=== PATIENT | female | born 1955 | race Caucasian/White ===

== ENCOUNTER 2016-04-06 12:26 | Outpatient (CLI) | payer BC | END 2016-04-06 12:27 | disposition home or self-care (01) | DX: N60.02 Solitary cyst of left breast (principal) ==

== ENCOUNTER 2016-06-17 13:16 | Outpatient (CLI) | payer BC | END 2016-06-17 13:17 | disposition home or self-care (01) | DX: G47.33 Obstructive sleep apnea (adult) (pediatric) (principal) ==

== ENCOUNTER 2017-10-07 18:03 | Emergency (ER) | payer BC ==
--- NOTE | 2017-10-07 18:32 | ED Physician Documentation ---
PD HPI LOWER EXT INJURY - Stated complaint Stated Complaint: GLF/ L HIP PX - Chief complaint Chief Complaint: Ext Problem - History obtained from History obtained from: Patient, Family - History of Present Illness PD HPI LOW EXT INJURY LOCATION: Left (She was stepping up onto a curb and felt a pop in the back of her leg and it was quite painful and she could not walk or bear weight after that. She did not really fall per se, she was assisted to the ground. No other injury) Timing - onset: How many weeks ago Review of Systems Ten Systems: 10 systems reviewed and negative Constitutional: reports: Reviewed and negative Cardiac: reports: Reviewed and negative Respiratory: reports: Reviewed and negative PD PAST MEDICAL HISTORY - Past Medical History Past Medical History: No - Allergies Allergies/Adverse Reactions: Allergies Allergy/AdvReac Type Severity Reaction Status Date / Time ibuprofen AdvReac Emesis Verified 10/07/17 18:12 - Living Situation Living Situation: reports: With spouse/s.o. - Social History Does the pt smoke?: No Does the pt have substance abuse?: No - Family History Family history: reports: Non contributory PD ED PE NORMAL - Vitals Vital signs reviewed: Yes - General General: Alert and oriented X 3, No acute distress - HEENT HEENT: PERRL, EOMI - Neck Neck: Supple, no meningeal sign, No bony TTP - Cardiac Cardiac: RRR, No murmur - Respiratory Respiratory: No respiratory distress, Clear bilaterally - Abdomen Abdomen: Normal bowel sounds, Soft, Non tender - Back Back: No CVA TTP, No spinal TTP - Derm Derm: Normal color, Warm and dry - Extremities Extremities: Other (Hips and pelvis are nontender as is the knee. She does not have any tenderness with internal or external rotation of the left hip. When I placed her in a prone position she is very tender over the mid hamstring on the left and is unable to lift the foot off the bed but can do so passively and hold it there.) - Neuro Neuro: Alert and oriented X 3, Normal speech - Psych Psych: Normal mood, Normal affect Results - Vitals Vitals: Vital Signs - 24 hr 10/07/17 10/07/17 18:06 20:44 Temperature 36.7 C Heart Rate 63 61 Respiratory 18 15 Rate Blood Pressure 152/77 H 176/94 H O2 Saturation 100 97 Oxygen O2 Source Room air - Rads (name of study) L hip and femur XRs Radiology: EMP read contemporaneously (Hip x-rays normal, on the femur x-ray there is a small ossific density medial to the left femoral neck which could represent a nondisplaced fracture and CT imaging was advised.) CT left hip Radiology: EMP read contemporaneously (Still some subtle changes that could be consistent with a nondisplaced subcapital neck fracture.) PD MEDICAL DECISION MAKING - ED course ED course: History and exam are really only consistent with a hamstring sprain or partial tear. X-rays were pretty much negative but demonstrated potential ossification medial to the femoral neck which could be consistent with a femoral neck fracture so this was followed with CT which was inconclusive as well. I spoke with Dr. Covarrubias for observation for MRI, and he reminded me that because of some staffing issues MRI is not available here until Wednesday After discussion with the patient and the decision was made to transfer her to [facility] for urgent MRI and he was accepted there by Dr. Hendrix in the emergency department and cobras were completed. - Sepsis Event Vital Signs: Vital Signs - 24 hr 10/07/17 10/07/17 18:06 20:44 Temperature 36.7 C Heart Rate 63 61 Respiratory 18 15 Rate Blood Pressure 152/77 H 176/94 H O2 Saturation 100 97 Oxygen O2 Source Room air Departure - Departure Disposition: 02 Transfer Acute Care Hosp Clinical Impression: Tear of left hamstring Qualifiers: Encounter type: initial encounter Qualified Code(s): S76.312A - Strain of muscle, fascia and tendon of the posterior muscle group at thigh level, left thigh, initial encounter Condition: Good Record reviewed to determine appropriate education?: Yes Instructions: ED Strain Muscle Ext Comments: Call your doctor to arrange a follow-up appointment, make the next available appointment. In the interim, return anytime if worse or if new symptoms develop. Your blood pressure was elevated today on check into the emergency department. This does not mean that you have hypertension, it is a common phenomenon to come to the emergency department and have elevated blood pressure. I recommend that you see your primary care physician within the week to have it rechecked when you are feeling better.
[2017-10-07] MEDS ORDERED: CYCLOBENZAPRINE 10 MG TABLET PO STA (19:11)
--- NOTE | 2017-10-07 19:18 | XRAY Report ---
Procedure Date: 10/07/2017 Accession Number: [id number] / [id number] Procedure: XR - Hip w/Pelvis 2-3V LT CPT Code: FULL RESULT: EXAM: LEFT HIP AND PELVIS RADIOGRAPHY EXAM DATE: 10/07/2017 07:03 PM. HISTORY: Left hip pain, unable to bear weight. COMPARISONS: None. TECHNIQUE: 1 view of the pelvis and 1 view of the hip. FINDINGS: Bones: Ossific density medial to the inferior aspect of the left femoral neck could represent soft tissue ossification versus the sequela of a left femoral neck fracture. Joints: The bilateral hip, pubis symphysis, and sacroiliac joints are preserved. Soft Tissues: Normal. No soft tissue swelling. Comment: Significant stool and gas overlies the sacrum limiting the evaluation for fractures. IMPRESSION: 1. Ossific density medial to the inferior aspect of the left femoral neck. Differential includes soft tissue ossification versus sequela of an occult left femoral neck fracture. Recommend CT for confirmation. 2. Normal alignment. RADIA
--- NOTE | 2017-10-07 19:21 | XRAY Report ---
Procedure Date: 10/07/2017 Accession Number: [id number] / [id number] Procedure: XR - Femur 2V LT CPT Code: FULL RESULT: EXAM: LEFT FEMUR RADIOGRAPHY EXAM DATE: 10/07/2017 07:03 PM. CLINICAL HISTORY: Leg injury. COMPARISON: None. TECHNIQUE: 2 views. FINDINGS: Bones: Small ossific density medial to the lower left femoral neck could represent soft tissue calcifications or subtle fracture. The remaining left femur is normal. Joints: The visualized hip and knee joints are normal. No effusions. Soft Tissues: Normal. No soft tissue swelling. IMPRESSION: 1. Small ossific density medial to the left femoral neck. Potentially, this could represent a subtle left femoral neck fracture. Recommend CT evaluation. 2. Normal alignment. RADIA
--- NOTE | 2017-10-07 21:26 | CT Report ---
Procedure Date: 10/07/2017 Accession Number: [id number] / [id number] Procedure: CT - Lower Extremity Left W/O CPT Code: FULL RESULT: EXAM: LEFT HIP CT WITHOUT CONTRAST EXAM DATE: 10/07/2017 08:43 PM. CLINICAL HISTORY: Leg injury, possible fracture on x-ray. COMPARISON: HIP W/PELVIS 2-3V LT 10/07/2017. TECHNIQUE: Thin-section axial images were acquired of the hip without contrast. Post-processing: Coronal and sagittal reformats. Other: None. In accordance with CT protocol optimization, one or more of the following dose reduction techniques were utilized for this exam: automated exposure control, adjustment of mA and/or KV based on patient size, or use of iterative reconstructive technique. FINDINGS: Bones: There is a corticated bony opacity adjacent to the ischial tuberosity, suggestive of an old avulsion fracture involving the hamstrings attachment. There is subtle alteration in the contour of the cortex of the subcapital neck of femur. The findings may indicate a nondisplaced femoral neck fracture. The superior and inferior pubic ramus, left acetabulum appear intact. Joints: See above. Musculature: Normal. No fatty atrophy. Other: The visualized intraperitoneal structures are unremarkable. IMPRESSION: 1. Very subtle changes in the subcapital neck of femur which may indicate a nondisplaced fracture. MRI or nuclear medicine bone scan is recommended for clarification. 2. Old avulsion fracture of the left hamstrings attachment. RADIA
[2017-10-07 22:31] VITALS: BP 157/74
[2017-10-07] MEDS ORDERED: MORPHINE 10 MG/ML VIAL IVP STA (22:59)
== END 2017-10-07 23:05 | disposition short-term general hospital (02) ==
LOC: ED 18:03
DX: S76.312A Strain of muscle, fascia and tendon of the posterior muscle group at thigh level, left thigh, initial encounter (principal); W22.09XA Striking against other stationary object, initial encounter; Y93.89 Activity, other specified; R03.0 Elevated blood-pressure reading, without diagnosis of hypertension
CPT/HCPCS: 73502; 73552; 73700; 99283; 99284; A9270

== ENCOUNTER 2018-03-14 13:09 | Outpatient (CLI) | payer BC | END 2018-03-14 13:10 | disposition home or self-care (01) | LOC: SC 13:09 | PROVIDERS: ATTEND Nurse Practitioner Family | DX: G47.33 Obstructive sleep apnea (adult) (pediatric) (principal) | CPT/HCPCS: 99212; 99214 ==

== ENCOUNTER 2018-06-08 14:15 | Outpatient (CLI) | payer BC ==
--- NOTE | 2018-06-09 08:54 | Mammography Report ---
Reason: SCREENING MAMMO Procedure Date: 06/08/2018 Accession Number: [id number] / [id number] Procedure: [facility] - Screening Mammo w/Jeffrey CPT Code: FULL RESULT: EXAM: Screening Mammo w/Jeffrey DATE: 06/08/2018 3:00 PM CLINICAL HISTORY: Screening encounter. History of late childbearing. TECHNIQUE: Bilateral CC, laterally exaggerated CC, MLO views were obtained. COMPARISON: 04/06/2016 through 05/04/2010. FINDINGS: The breasts demonstrate heterogeneously dense fibroglandular parenchyma bilaterally. A 0.8 cm well-circumscribed isodense nodule in the left upper central breast 3.5 cm from the nipple on 3-D MLO slice 41 and 3-D cc slice 38 is not definitely present on the previous studies and requires additional ultrasound to determine whether this represents a cyst. No suspicious masses, clustered microcalcifications, or regions of architectural distortion are identified in the right breast. IMPRESSION: Incomplete examination RECOMMENDATION: Additional evaluation of the left breast with ultrasound as above. BIRADS CATEGORY 0: Incomplete examination STANDARD QUALIFYING STATEMENTS: 1. This examination was not reviewed with the aid of Computer-Aided Detection (CAD). 2. A negative or benign imaging report should not delay biopsy if clinically suspicious findings are present. Consider surgical consultation if warrented. More than 5% of cancers are not identified by imaging. 3. Dense breasts may obscure an underlying neoplasm. 4. This examination was reviewed with the aid of 3D breast imaging (tomosynthesis).
== END 2018-06-08 14:16 | disposition home or self-care (01) ==
LOC: DI 14:15
DX: Z12.31 Encounter for screening mammogram for malignant neoplasm of breast (principal)
CPT/HCPCS: 77063; 77067

== ENCOUNTER 2018-06-20 09:02 | Outpatient (CLI) | payer BC | END 2018-06-20 09:03 | disposition home or self-care (01) | LOC: SC 09:02 | PROVIDERS: ATTEND Nurse Practitioner Family | DX: G47.33 Obstructive sleep apnea (adult) (pediatric) (principal) | CPT/HCPCS: 99212; 99214 ==

== ENCOUNTER 2018-06-20 10:47 | Outpatient (CLI) | payer BC ==
--- NOTE | 2018-06-20 15:57 | Ultrasound Report ---
Reason: ABNORMAL MAMMOGRAM Procedure Date: 06/20/2018 Accession Number: [id number] / [id number] Procedure: US - Breast Unilateral Limited CPT Code: FULL RESULT: EXAM: Breast Unilateral Limited DATE: 06/20/2018 11:35 AM CLINICAL HISTORY: Diagnostic breast ultrasound. The patient is recalled from screening for a well-circumscribed 0.8 cm nodule in the left central breast. COMPARISON: Screening mammography 06/08/2018. TECHNIQUE: Targeted ultrasound was performed of the left breast in the area of clinical concern at 12:00 o'clock and 3 cm distance from the nipple. Color Doppler was employed as appropriate. FINDINGS: Grayscale ultrasound demonstrates a 0.7 cm simple cyst with increased through transmission, no internal vascularity by color Doppler and no appreciable soft tissue solid component. This corresponds to the mammographic finding and is typically benign. No suspicious findings are identified. IMPRESSION: Benign findings RECOMMENDATION: Recommend routine annual Screening mammography unless otherwise clinically indicated. BIRADS CATEGORY 2: Benign findings RADIA
== END 2018-06-20 10:48 | disposition home or self-care (01) ==
LOC: DI 10:47
PROVIDERS: ATTEND Physician Assistant
DX: R92.8 Other abnormal and inconclusive findings on diagnostic imaging of breast (principal)
CPT/HCPCS: 76642

== ENCOUNTER 2019-09-06 11:08 | Outpatient (CLI) | payer BC ==
[2019-09-06 12:18] VITALS: BP 118/70
--- NOTE | 2019-09-06 12:18 | SLEEP CARE CONSULTATION ---
Information from patient questionnaire entered by Shalini Heller. I have reviewed and concur with the information entered by Shalini Heller. This document represents the service I personally performed and the decisions made by me, Lisset Russo, RN, MSN, ST[employer]. History of Present Illness Service Date and Time: 09/06/2019 1108 Previous diagnosis: Mild, Obstructive Sleep Apnea-Hypopnea Syndrome AHI: 10.0 (in 2013) Reason for follow up: annual (last seen 2019) Equipment type: CPAP Equipment obtained from: [employer] (in [place] / getting as needed but cheaper online.) Mask style: Nasal Mask brand: Respironics (Dreamwear working well) Backup mask available: Yes (old mask) Last cushion change: 6 weeks ago Prior sleep studies: Yes Year and Where: 2013 - [facility] Type of Sleep Study: Polysomnography CPAP Compliance Data - Data Reviewed with Patient Average duration of nightly device use: 7.95 Compliance rate %: 95 (180 days) Current pressure setting (cmH2O): 7-12 Humidity settin Average residual AHI: 3.1 (average 90% pressure 10.8cmH20 mean 8.7cmH20) Average large leak: 43 sec Subjective Patient concerns: reports: nasal congestion (seasonal - 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 denies: aerophagia, mask discomfort, air blowing in eyes, mask leak noise, condensation in mask/hose, epistaxis Observed to snore while using device: No Current pressure setting perceived as: too low (initially) On therapy, patient: reports: sleeping better, awakening more refreshed, being more awake and alert during the day, more rested overall. denies: drowsiness while driving Initial [place] Sleepiness Scale score: 5 (in 2013) Current [place] Sleepiness Scale score: 4 Allergies and Home Medications Known drug allergies: Yes (ibuprofen) Home medication list reviewed: No ( no changes stated) Review of Systems Review of systems same as previous: Yes Physical Exam Blood Pressure: 118/70 Cuff size: long Heart Rate: 60 O2 Saturation: 96 Height: 5 ft 7 in Weight: 188 lb Weight change since last visit: gained 4 pounds Body Mass Index: 29.4 BMI Classification: Overweight Impression and Plan 1. Obstructive Sleep Apnea-Hypopnea Syndrome, mild, with good treatment compliance and good apnea control. On CPAP therapy, the patient has better sleep quality and is more rested overall. For air hunger at initiation of therapy I will change her autoCPAP presssure to [id number]. She is to contact me if pressure change insufficient or uncomfortable. With discussion, she felt it was the ramp that was too low but it appears she does not use the ramp. Rationale for use of ramp discussed. Nasal congestion can be reduced with increasing the CPAP humidity . The heated hose can be adjusted higher if condensation with higher humidity setting or lower to get more moisture. Also she is currently using saline spray and Flonase to control symptoms with benefit noted in addition to use of a home HEPA filter. She also has started to shower at night which has been helpful. A higher humidity will also reduce oral dryness. A chinstrap could also be helpful since she feels it is from opening her mouth occasionally but she declined. She would rather try the oral vertical tape she has used a few times with success. She would like a travel CPAP, questions answered about devices and process. Cost range discussed and she can check on Respironics site for more information since she likes this product. This style also has downloading capacitiy for use since she hopes to restart traveling more frequently. I also showed her how the humidity can be removed from her CPAP to make smaller and can use her saline nasal spray for moisture. She is due for a new CPAP but would like to wait to order until deductible met. I informed her of malfunction symptoms to report to replace device. She looked at CPAP samples and would like the Respironics Dreamstation. She was informed to contact me when she wants to update. I can write a prescription if I have seen her within 6 months. I also discussed process for new device compliance check. Since she has gained some weight, I reviewed her BMI and advised her to lose weight. I discussed how significant weight gain could increase her apnea risk and CPAP pressure requirements. She is currently at her higher range of pressures. In addition, if she loses weight, her autoCPAP should accomodate for some weight loss. Symptoms to report for future pressure change discussed. Patient's apnea severity and rationale for treatment to reduce apnea, improve sleep quality and reduce cardiovascular and cerebrovascular events was reviewed. * Change auto CPAP pressure to 8-12 cmH2O * Notify me if snoring with mask or feeling that the pressure is too much or too little * Attempt to lose weight * Implement methods to reduce oral dryness and nasal congestion. * Call this office if any problems using CPAP * Contact this office if wants to update device * Travel CPAP RX given * Return for follow up in 1 year unless decides to update device , or sooner if concerns arise Visit Type: In Office Time Spent with Patient (minutes): 40 Provider Statement: I spent 100% of the Face to Face Visit with the patient with greater than 50% spent counseling the patient and coordination of care.
== END 2019-09-06 11:09 | disposition home or self-care (01) ==
LOC: SC 11:08
PROVIDERS: ATTEND Nurse Practitioner Family
DX: G47.33 Obstructive sleep apnea (adult) (pediatric) (principal); E66.3 Overweight; Z68.29 Body mass index [BMI] 29.0-29.9, adult
CPT/HCPCS: 99212; 99215

== ENCOUNTER 2020-10-31 15:32 | Outpatient (CLI) | payer BC ==
--- NOTE | 2020-10-31 16:08 | SLEEP CARE CONSULTATION ---
Information from patient questionnaire entered by Shalini Heller. I have reviewed and concur with the information entered by Shalini Heller. This document represents the service I personally performed and the decisions made by , Ivanna Dominguez ARNP. History of Present Illness Service Date and Time: 10/31/2020 1532 Previous diagnosis: Mild, Obstructive Sleep Apnea-Hypopnea Syndrome AHI: 10.0 (in 2013) Reason for follow up: annual (last seen 08/2019) Equipment type: CPAP Equipment obtained from: [employer] (in [place]) Mask style: Nasal Mask brand: Respironics (Dreamwear) Backup mask available: Yes (old mask) Last cushion change: 1 month Prior sleep studies: Yes Year and Where: 2013 - [facility] Type of Sleep Study: Polysomnography HPI additional information: JEB MCMULLEN was diagnosed to have mild, AHI 10.0, obstructive sleep apnea- hypopnea syndrome and returned today for CPAP therapy annual follow-up. CPAP Compliance Data - Data Reviewed with Patient Average duration of nightly device use: 7 hr 52 min Compliance rate %: 91.1 (180 days) Current pressure setting (cmH2O): 9-11 Average residual AHI: 2.4 Average large leak: 31 sec Subjective Missed days of use due to: reports: travel (using Travel CPAP) Patient concerns: reports: dry mouth, nose, throat. denies: aerophagia, mask discomfort, air blowing in eyes, mask leak noise, condensation in mask/hose, nasal congestion, epistaxis, other Observed to snore while using device: No Current pressure setting perceived as: comfortable On therapy, patient: reports: sleeping better, awakening more refreshed, being more awake and alert during the day, more rested overall. denies: drowsiness while driving Initial [place] Sleepiness Scale score: 5 (in 2013) Current [place] Sleepiness Scale score: 0 Allergies and Home Medications Home medication list reviewed: Yes (no changes) Review of Systems Review of systems same as previous: Yes (no changes) Physical Exam Blood Pressure: 147/87 Cuff size: wrist Heart Rate: 73 O2 Saturation: 98 Height: 5 ft 7 in Weight: 190 lb Body Mass Index: 29.7 BMI Classification: Overweight Impression and Plan 1. Obstructive Sleep Apnea-Hypopnea Syndrome, mild, with good treatment compliance and good apnea control. On CPAP therapy, the patient has better sleep quality and is more rested overall. Patient has some mild mouth dryness. Her humidity is set on 4. Oral dryness can be reduced by adjusting humidity setting higher or heated hose lower or by adjusting both settings. Printed instructions given on how to change humidity and heated hose settings with rationale explaining why to change. Patient comes in concerned about recall on the devices that she pounds. She owns a REMstar 60 series as well as a [employer] go portable device. Patient has already registered their device for the recall. Patient denies any black particles seen in machine or hoses, any unusual odors coming from device. Patient has not experienced any physical symptoms such as upper airway irritation, headache, skin or eye irritation, asthma, nausea/vomiting, difficulty breathing or chest pain. Patient informed that they may use an inline CPAP filter that they can obtain online to reduce chance of any particles being inhaled or ingested. We discussed thoroughly the health risks of not using the CPAP versus continuing use with the filter in place. If patient is not able to sleep due to waking up choking, gasping for air or other respiratory distress that they may decide to continue using it until it is either replaced or repaired. Since the patients current machine is at least 5 years old the patient is opting to update their device with a device that is not on the recall. Compliance guidelines for new device and follow up discussed. Patient voiced understanding and agreement with plan. Patient's apnea severity and rationale for treatment to reduce apnea, improve sleep quality and reduce cardiovascular and cerebrovascular events was reviewed. I also reviewed the benefit of consistent device use of CPAP for gastric reflux and migraines. * Continue auto CPAP pressure at 9-11 cmH2O * Update machine * Notify me if snoring with mask or feeling that the pressure is too much or too little * Attempt to lose weight * Call this office if any problems using CPAP * Return for follow up one month after obtaining new device, or sooner if concerns arise Counseling Topics: Spare mask, Weight loss health impact Visit Type: In Office Time Spent with Patient (minutes): 28 Provider Statement: I spent 100% of the Face to Face Visit with the patient with greater than 50% spent counseling the patient and coordination of care.
[2020-10-31 16:09] VITALS: BP 147/87
== END 2020-10-31 15:33 | disposition home or self-care (01) ==
LOC: SC 15:32
PROVIDERS: ATTEND Nurse Practitioner Family
DX: G47.33 Obstructive sleep apnea (adult) (pediatric) (principal)
CPT/HCPCS: 99212; 99213

== ENCOUNTER 2021-05-10 16:38 | Outpatient (CLI) | payer BC ==
--- NOTE | 2021-05-10 17:33 | Ultrasound Report ---
PROCEDURE: Pelvic w/Transvaginal INDICATIONS: ABN UTERINE BLEEDING TECHNIQUE: Real-time scanning was performed of the pelvic organs, with image documentation. Additional endovagi nal scanning was necessary due to incomplete visualization of the adnexal and endometrial structures by transabdominal scanning. COMPARISON: 07/25/2013 FINDINGS: No pathologic free abdominal or pelvic fluid. Uterus: Uterus is normal in size at 7.5 x 3.6 x 4.8 cm. The uterus is anteverted and demonstrates a homogeneous appearance. The endometrium measures 12 mm in combined thickness. There is an apparent endometrial polyp seen with a potential future vessel along its fundal aspect that measures 12 x 12 x 15 mm. Nabothian cysts are incidentally noted. Ovaries: Neither ovary can be seen. No adnexal masses are seen on either side. IMPRESSION: Endometrial thickening is seen, with apparent underlying endometrial polyp. Please consider endometri al neoplasm. Please consider further evaluation with endometrial sampling or hysteroscopy. Reviewed by: José Miguel Leija MD on 05/10/2021 4:31 PM [facility] Approved by: José Miguel Leija MD on 05/10/2021 4:31 PM [facility] Station ID: [id number]
== END 2021-05-10 16:39 | disposition home or self-care (01) ==
LOC: DI 16:38
PROVIDERS: ATTEND Nurse Practitioner Family
DX: N93.9 Abnormal uterine and vaginal bleeding, unspecified (principal); R93.89 Abnormal findings on diagnostic imaging of other specified body structures

== ENCOUNTER 2021-07-18 11:57 | Outpatient (CLI) | payer BC | END 2021-07-18 11:58 | disposition home or self-care (01) | LOC: RT 11:57 | PROVIDERS: ATTEND Obstetrics & Gynecology | DX: Z01.810 Encounter for preprocedural cardiovascular examination (principal) | CPT/HCPCS: 93005 ==

== ENCOUNTER 2021-07-22 11:37 | Outpatient (CLI) | payer BC ==
[2021-07-22 14:12] LABS: HCT - HEMATOCRIT 38.4 % (37.0-47.0); HGB - HEMOGLOBIN 12.4 g/dL (12.0-16.0); MEAN CORPUSCULAR HGB CONC 32.3 g/dL (32.0-36.0); MEAN CORPUSCULAR VOLUME 92.8 fL (81.0-99.0); RED BLOOD COUNT 4.14 10^6/uL (4.20-5.40); RED CELL DISTRIBUTION WIDTH 13.2 % (12.0-15.0); WHITE BLOOD COUNT 8.1 x10^3/uL (4.8-10.8)
[2021-07-22 14:46] LABS: ALBUMIN 4.2 g/dL (3.2-5.5); ALBUMIN/GLOBULIN RATIO 1.2 (1.0-2.2); BILIRUBIN,TOTAL 0.7 mg/dL (0.2-1.0); CALCIUM 9.7 mg/dL (8.5-10.3); TOTAL PROTEIN 7.8 g/dL (6.7-8.2)
== END 2021-07-22 11:38 | disposition home or self-care (01) ==
LOC: LAB.S 11:37
PROVIDERS: ATTEND Obstetrics & Gynecology
DX: Z01.812 Encounter for preprocedural laboratory examination (principal); C54.1 Malignant neoplasm of endometrium
CPT/HCPCS: 36415; 80053; 85027

== ENCOUNTER 2022-09-17 09:21 | Outpatient (CLI) | payer BC ==
--- NOTE | 2022-09-18 08:38 | MRI Report ---
PROCEDURE: FOOT WO - RT INDICATIONS: FOOT PAIN, EXTENSOR TENDON WEAKNESS TECHNIQUE: Noncontrast sagittal T1 spin echo and T2 fast spin echo with fat saturation, long-axis T1 spin echo a nd STIR, short-axis proton density fast spin echo and T2 fast spin echo with fat saturation through t he forefoot. COMPARISON: None. FINDINGS: Image quality: Excellent. Bones and joints: No bone marrow contusions or metatarsal stress fractures. The sesamoid bones appe ar in expected positions, without internal edema. No metatarsophalangeal joint degeneration. Scatte red degenerative changes in the interphalangeal joints of the toes. Mild degenerative changes of the 1st metatarsophalangeal joint. No intraosseous lesions. Soft tissues: The visualized plantar foot muscles demonstrate normal signal and bulk. Visualized fl exor and extensor tendons appear intact, without tenosynovitis. Sagittal images demonstrate no evid ence for plantar plate tears. Small 6 x 4 mm ganglion cyst is seen at the dorsal aspect of the midfo ot at the articulation between the lateral cuneiform and the cuboid. A 4 x 4 mm ganglion cyst is seen dorsal to the 4th and 5th metatarsal bases. Small adventitial bursal effusion plantar to the 5th met atarsal head. IMPRESSION: 1.No extensor tendon injury is seen. 2.Mild degenerative changes of the 1st metatarsophalangeal joint and in the interphalangeal joints of the toes. 3.Small ganglion cysts at the dorsal lateral aspect of the midfoot. Reviewed by: Leon Edmond MD on 09/18/2022 8:36 AM PDT Approved by: Leon Edmond MD on 09/18/2022 8:36 AM PDT Station ID: [id number]
--- NOTE | 2022-09-18 08:40 | MRI Report ---
PROCEDURE: ANKLE WO - RT INDICATIONS: FOOT PAIN, EXTENSOR TENDON WEAKNESS TECHNIQUE: Noncontrast Magnetic Resonance Imaging (MRI) of the ankle/hindfoot was performed utilizing the follow ing sequences: sagittal T1 spin echo, sagittal T2 fast spin echo with fat saturation, axial PD fast s pin echo, axial T2 fast spin echo with fat saturation, coronal T1 spin echo, and coronal T2 fast spin echo with fat saturation. COMPARISON: None. FINDINGS: Image quality: Excellent. Bones and joints: No acute trabecular bone injury or fracture. No hindfoot coalition. The ankle mortise is maintained. No osteochondral defect is seen at the talar dome. No significant degenerative changes are seen in t he midfoot or hindfoot. Small ganglion cysts are seen at the dorsal aspect of the midfoot overlying t he lateral cuneiform-cuboid articulation and 4th and 5th metatarsal bases measuring 6 mm and 4 mm. Medial structures: The deltoid ligament and the spring ligament complex are intact. The posterior tibialis, flexor digit orum longus, and flexor hallucis longus tendons are intact. The posterior tibial neurovascular bundle appears normal within the tarsal tunnel, without extrinsic mass effect. Lateral structures: The anterior and posterior distal tibiofibular ligaments are intact. Remote prior low-grade sprain of the anterior talofibular ligament. The calcaneofibular ligament and posterior talofibular ligament a re intact. The peroneus brevis and longus tendons are intact. A cyst is seen extending superiorly fro m the lateral sinus tarsi measuring up to 1.8 x 1.1 x 1.7 cm in maximum dimensions. Anterior structures: The tibialis anterior, extensor hallucis longus, and extensor digitorum longus tendons appear intact. Posterior and plantar structures: Mild Achilles tendinosis. There is thickening of the proximal plantar fascia with focal fluid signal intensity at the origin with minimal surrounding edema. A mildly edematous small plantar calcaneal en thesophyte is present. Fatty infiltration of the abductor digiti minimi muscle is consistent with chr onic denervation changes/Avalos neuropathy. IMPRESSION: 1.Low-grade partial tearing of the proximal plantar fascial superimposed on moderate to severe chroni c fasciitis. 2.Mild Achilles tendinosis. 3.Visualized portions of the anterior extensor tendons appear to be intact. 4.Remote prior low-grade sprain of the anterior talofibular ligament. 5.Ganglion cyst is seen extending superiorly from the lateral sinus tarsi measuring up to 1.8 cm. Reviewed by: Leon Edmond MD on 09/18/2022 8:38 AM PDT Approved by: Leon Edmond MD on 09/18/2022 8:38 AM PDT Station ID: [id number]
== END 2022-09-17 09:22 | disposition home or self-care (01) ==
LOC: DI 09:21
PROVIDERS: ATTEND Podiatrist
DX: S96.112A Strain of muscle and tendon of long extensor muscle of toe at ankle and foot level, left foot, initial encounter (principal); R26.2 Difficulty in walking, not elsewhere classified; S96.821A Laceration of other specified muscles and tendons at ankle and foot level, right foot, initial encounter; M67.471 Ganglion, right ankle and foot; M19.071 Primary osteoarthritis, right ankle and foot

== ENCOUNTER 2022-10-05 09:43 | Outpatient (CLI) | payer BC ==
--- NOTE | 2022-10-05 13:32 | DEXA Report ---
PROCEDURE: Dexa Spine and/or Hip INDICATIONS: POST MENOPAUSAL TECHNIQUE: Dual energy x-ray absorptiometry (DXA) was performed on a [employer]. Regions measur ed are the AP Spine, femoral neck, and if needed forearm. COMPARISON: None FINDINGS: Lumbar Spine: Bone Mineral Density 1.354 g/cm/cm,T score 1.4. Left Femoral Neck: Bone Mineral Density 0.941 g/cm/cm, T score -0.7. Left Hip: Bone Mineral Density 1.044 g/cm/cm,T score 0.3. (T score greater or equal to -1.0: NORMAL) (T score from -1.1 to -2.4: OSTEOPENIA) (T score less than or equal to -2.5 to: OSTEOPOROSIS) Impression: By WHO criteria, this patient has normal bone density. Patients with diagnosis of osteoporosis or osteopenia should have regular bone mineral density assess ment. For those eligible for Medicare, routine testing is allowed once every 2 years. Testing frequ ency can be increased for patients who have rapidly progressing disease or for those who are receivin g medical therapy to restore bone mass. Reviewed by: Peter Landon MD on 10/05/2022 1:02 PM PDT Approved by: Peter Landon MD on 10/05/2022 1:02 PM PDT Station ID: [id number]
== END 2022-10-05 09:44 | disposition home or self-care (01) ==
LOC: DI 09:43
PROVIDERS: ATTEND Nurse Practitioner Family
DX: Z78.0 Asymptomatic menopausal state (principal)

== ENCOUNTER 2022-10-05 09:44 | Outpatient (CLI) | payer BC ==
--- NOTE | 2022-10-06 11:14 | Mammography Report ---
BILATERAL DIGITAL SCREENING MAMMOGRAM 3D/2D: 10/05/2022 CLINICAL: Routine screening. Comparison is made to exams dated: 04/06/2016 mammogram, 03/07/2014 mammogram, and 06/08/2018 mammogra m - [facility]. There are scattered areas of fibroglandular density in both breasts (category b / 25%-50% glandular t issue). No significant masses, calcifications, or other findings are seen in either breast. There has been no significant interval change. IMPRESSION: NEGATIVE There is no mammographic evidence of malignancy. A 1 year screening mammogram is recommended. Based on the Tyrer Cuzick model (a risk assessment model) the patients lifetime risk is 7.9% and her 10 year risk is 3.8%. According to the ACR, ACS, and NCCN guidelines, an annual breast MRI exam joanna g with mammogram is recommended if the patients lifetime risk is 20% or greater. This exam was interpreted at Station ID: [id number]. NOTE: For mammograms, a report in lay terms will be sent to the patient. Approximately 15% of breast malignancies will not be visualized mammographically. In the management of a palpable breast mass, a negative mammogram must not discourage biopsy of a clinically suspicious lesion. Electronically Signed By: Nakul medrano/jose:10/05/2022 17:06:31 letter sent: No_Letter ACR BI-RADS Category 1: Negative 3341F PARENCHYMAL PATTERN: (A) - The breast(s) demonstrate(s) scattered fibroglandular densities. BI-RADS CATEGORY: (1) - 1 Mammogram [id number] 1 year screening LATERALITY: (B)
== END 2022-10-05 09:45 | disposition home or self-care (01) ==
LOC: DI 09:44
PROVIDERS: ATTEND Nurse Practitioner Family
DX: Z12.31 Encounter for screening mammogram for malignant neoplasm of breast (principal)